=== PATIENT | male | born 1985 | race Caucasian/White ===

== ENCOUNTER 2018-10-13 15:01 | Emergency (ER) | payer OTHER ==
[~2018-10-13] VITALS: Ht 170.2 cm; Wt 79.4 kg
[2018-10-13] MEDS ORDERED: TOPROL XL100 MG PO (16:16)
[2018-10-13 17:22] VITALS: BP 168/105
--- NOTE | 2018-10-14 10:38 | EKG ---
[place] [address] ELECTROCARDIOGRAM REPORT Name: LAURO BUI Room: [facility]#: [id number] Admission: 10/13/18 Attend Phys: Discharge: 10/13/18 Date of : 81 Report #: [id number] THIS REPORT FOR: //name// [facility] ED Test Date: 2018-10-13 Test Time: 15:26:52 Pat Name: LAURO BUI Department: Room: Gender: M Clinical Quality Assurance Associate: RODRI : 1985 Requested By: Joel Rangel Order Number: [id number] MD: [facility] Measurements Intervals [place] Rate: 126 P: 57 WI: 107 QRS: -29 QRSD: 95 T: 52 QT: 316 QTc: 458 Interpretive Statements Sinus tachycardia Left ventricular hypertrophy Anterior ST elevation, probably due to LVH Artifact in lead(s) I,II,III,aVR,aVL,aVF No previous ECG available for comparison Electronically Signed On 10-14-2018 10:38:32 CDT by [facility] [email or web address] <ELECTRONICALLY SIGNED> By: [facility] MD, [facility] 10/14/18 1038 1526 1526 [facility] MD, [facility] /EPI
== END 2018-10-13 17:24 | disposition home or self-care (01) ==
LOC: M.ERS 15:01
DX: I10 Essential (primary) hypertension (principal); J02.0 Streptococcal pharyngitis; F17.200 Nicotine dependence, unspecified, uncomplicated; Z88.8 Allergy status to other drugs, medicaments and biological substances